=== PATIENT | female | born 1985 | race Caucasian/White ===

== ENCOUNTER 2016-08-19 08:23 | Emergency (ER) | payer MEDICAID ==
[~2016-08-19 08:23] MED LIST: AMOXICILLIN875 MG PO; AMOXIL400 MG/5 M PO; BACTRIM1 TAB PO; BENTYL20 M1 PO; CALCIUM500 M3 PO; CELEXA20 MG PO; CELEXA40 MG PO; CLONAZEPAM0.5 MG PO; CRANBERRY 400 M1 TAB PO; CYCLOBENZAPRINE10 M1 PO; FIORICET1 TA1 PO; FISH OIL1 CAP PO; FLONASE ALLERG9.9 ML; GABAPENTIN600 M2 PO; GABAPENTIN800 M2 PO; HYDROCODON-ACE1 EAC7 PO; IBUPROFEN800 M1 PO; KLONOPIN0.5 M1 PO; LORTAB1 ML PO; MACRODANTIN100 MG PO; MAXALT5 MG PO; MELOXICAM; MILK OF MAGNESIA PO; MOTRIN600 MG PO; MOTRIN800 MG PO; NEURONTIN300 MG PO; NORCO 5-325 TA1 EACH PO; NORCO 5/325 TAB1 TAB PO; NUCYNTA50 M1 PO; OXYCODONE/APAP PO; PEPCID AC10 MG PO; PERCOCET 5-3251 EACH PO; PERCOCET 5/3251 TAB PO; PHENERGAN W/CO120 M2 PO; PRENATAL VITAMI1 TAB; PRENATAL1 EACH PO; PROMETRIUM200 MG PO; ROXICET 5/325500 ML PO; SENOKOT-S TABLE1 TAB PO; TYLENOL; TYLENOL EXTRA500 M1 PO; TYLENOL325 MG PO; TYLENOL500 MG PO; ULTRAM50 M1 PO; VENTOLIN HFA18 G1 INH; VISTARIL; VITAMIN D1000 UNI3 PO; ZOLOFT100 M1 PO; ZOLOFT100 MG PO; ZPAC; [UNRECOGNIZED DRUG - REMARK]
[2016-08-19] MEDS ORDERED: MOBIC15 M2 PO (08:51)
[2016-08-19] MEDS ORDERED: ZENCHENT 0.4 M1 EACH PO (09:06)
[2016-08-19 09:23] LABS: BASO % 0.5 % (0-2); EOS % 1.6 % (0-7); EOSINOPHIL ABSOLUTE COUNT 0.1 tho/cmm (0.0-0.7); HCT-HEMATOCRIT 37.2 % (34.0-49.0); HGB-HEMOGLOBIN 12.7 gm/dl (12.0-15.5); IMMATURE GRANULOCYTES ABSOLUTE 0.01 tho/cmm (0-0.03); IMMATURE GRANULOCYTES PERCENT 0.3 % (0-0.3); LYMPH % 40.6 % (20-45); LYMPH ABSOLUTE COUNT 1.5 tho/cmm (0.8-4.5); MCHC MEAN CORPUSCULAR HGB CONC 34.1 % (32.0-36.0); MCV (MEAN CELL VOLUME) 87.9 fl (82.0-96.0); MEAN PLATELET VOLUME 10.7 cmc (9.4-12.4); MONO % 7.6 % (0-12); MONOCYTE ABSOLUTE COUNT 0.3 tho/cmm (0.0-1.2); NEUTROPHIL ABSOLUTE COUNT 1.8 tho/cmm (1.6-8.0); NEUTROPHIL-AUTOMATED 1.8 tho/cmm (1.6-8.0); NEUTROPHILS % 49.4 % (40-80); PLATELET COUNT 218 tho/cmm (150-450); RED BLOOD COUNT 4.23 mil/cmm (4.00-5.20); RED CELL DISTRIBUTION WIDTH 12.3 % (12.4-16.4); WHITE BLOOD COUNT 3.7 tho/cmm (4.0-10.0)
[2016-08-19 09:26] LABS: URINE APPEARANCE CLEAR; URINE BILIRUBIN NEGATIVE (NEG); URINE BLOOD LARGE (NEG); URINE COLOR YELLOW; URINE GLUCOSE (UA) NEGATIVE (NEG); URINE KETONE NEGATIVE (NEG); URINE LEUKOCYTE ESTERASE NEGATIVE (NEG); URINE NITRITE NEGATIVE (NEG); URINE PROTEIN SMALL (NEG); URINE SPECIFIC GRAVITY 1.015 (1.003-1.030)
[2016-08-19 09:38] LABS: ALBUMIN 3.8 g/dl (3.5-5.0); ALKALINE PHOSPHATASE 83 U/L (33-138); ALT/SGPT 19 U/L (12-78); ANION GAP 12 mmol/L (0-20); AST/SGOT 17 U/L (10-40); BILIRUBIN,TOTAL 0.2 mg/dl (0-1.5); BLOOD UREA NITROGEN 10 mg/dl (6-24); CALCIUM 8.3 mg/dl (8.5-10.5); CARBON DIOXIDE-VENOUS 24 mmol/L (22-32); CHLORIDE 108 mmol/l (96-110); CREATININE 0.69 mg/dl (0.50-1.10); GLUCOSE 75 mg/dL (70-110); LIPASE 225 U/L (73-393); POTASSIUM 4.1 mmol/L (3.7-5.1); SODIUM 140 mmol/L (135-145); eGFR VALUE FOR BLACK >90 mL/Min
[2016-08-19 09:42] LABS: PREGNANCY-SERUM NEGATIVE (NEGATIVE)
[2016-08-19 09:43] LABS: URINE BACTERIA 1+; URINE MUCUS 3+; URINE WBC RARE /[HPF] (0-5)
[2016-08-19] MEDS ORDERED: ZOFRAN ODT4 MG PO (11:24)
[2016-08-19] MEDS ORDERED: NORCO 5-325 TA1 EACH PO (11:24)
[2016-11-08] MEDS ORDERED: IBUPROFEN200 M2 PO (17:52)
[2016-11-08] MEDS ORDERED: NORCO 5-325 TA1 EACH PO (20:03)
[2016-11-08] MEDS ORDERED: IBUPROFEN800 M1 PO (20:03)
== END 2016-08-19 11:35 ==
LOC: EDMED 08:23
PROVIDERS: Emergency Medicine
DX: R10.9 Unspecified abdominal pain (principal); R31.9 Hematuria, unspecified; F41.9 Anxiety disorder, unspecified; Z90.49 Acquired absence of other specified parts of digestive tract; Z98.890 Other specified postprocedural states; Z87.891 Personal history of nicotine dependence
CPT/HCPCS: J1170; J2405; J7030; Q9967